=== PATIENT | male | born 1990 | race Caucasian/White ===

== ENCOUNTER → 2020-01-08 17:10 | Outpatient (CLI) | payer BC, SELFPAY ==
--- NOTE | ~2020-01-08 | XR_ITS ---
XR hip BI 2V w AP pelvis 01/08/2020 18:03 Indication: Bilateral hip pain Procedure: 3 views of each hip including AP pelvis Comparison: No prior studies for comparison. Findings: Pelvic rings are intact. No fracture or traumatic malalignment. No significant joint space narrowing. Sacral foramen are symmetric. No focal soft tissue abnormality. Impression: 1: No significant bone or joint abnormality. Reviewed, dictated and finalized at location A. MINER BLASTING Impression: 1: No significant bone or joint abnormality.
--- NOTE | ~2020-01-08 | MR_ITS ---
EXAMINATION: MR lumbar spine wo [facility] EXAM DATE: 01/08/2020 17:54 INDICATION: Low back pain for 6 years. TECHNIQUE: Multi-sequential, multiplanar MR images of the lumbar spine were obtained without contrast . Sagittal T1, T2, T2 fat saturation images. Axial T2 weighted images. There is no prior study for comparison. FINDINGS: The vertebral bodies are aligned in the AP dimension. There is mild disc disease L5-S1. The vertebral body and disc heights are otherwise well maintained. The conus medullaris terminates at th e L1/2 level and has normal signal intensity and morphology. There are no suspicious marrow signal a bnormalities. Paraspinal soft tissue is unremarkable. Level by level evaluation: T12-L1: Disc does not extend beyond the endplate margin. Facet arthropathy: Mild. Neural foraminal stenosis: No stenosis. Central canal stenosis: No stenosis. L1-L2: Disc does not extend beyond the endplate margin. Facet arthropathy: Mild. Neural foraminal stenosis: No stenosis. Central canal stenosis: No stenosis. L2-L3: Disc does not extend beyond the endplate margin. Facet arthropathy: Mild to moderate. Neural foraminal stenosis: No stenosis. Central canal stenosis: No stenosis. L3-L4: There is a mild diffuse disc bulge. Facet arthropathy: Mild to moderate. Neural foraminal stenosis: No stenosis. Central canal stenosis: No stenosis. L4-L5: There is a mild to moderate diffuse disc bulge. Facet arthropathy: Mild to moderate. Neural foraminal stenosis: Mild bilateral. Central canal stenosis: Mild. L5-S1: There is a mild to moderate diffuse disc bulge. Superimposed broad left central protrusion. Facet arthropathy: Mild to moderate. Neural foraminal stenosis: Mild to moderate bilateral. Central canal stenosis: Mild, mild narrowing of left lateral recess. IMPRESSION: 1. Mild lumbar spondylosis. Reviewed, dictated and finalized at location A. /CVN CV TSC SYSTEM OPERATOR IMPRESSION: 1. Mild lumbar spondylosis.
--- NOTE | ~2020-01-08 | XR_ITS ---
XR knee RT 3V 01/08/2020 18:03 INDICATION: Bilateral knee pain PROCEDURE: 3 views right knee COMPARISON: No prior studies for comparison. FINDINGS: Fracture, dislocation or subluxation is not identified. No significant joint effusion. The soft tissues appear within normal limits. No foreign bodies are identified. IMPRESSION: 1: NO ACUTE BONE OR JOINT ABNORMALITY IDENTIFIED. Reviewed, dictated and finalized at location A. LY CASEWORKER
--- NOTE | ~2020-01-08 | XR_ITS ---
XR knee LT 3V 01/08/2020 18:03 INDICATION: Left knee pain PROCEDURE: 3 views left knee COMPARISON: No prior studies for comparison. FINDINGS: Fracture, dislocation or subluxation is not identified. No significant joint effusion. The soft tissues appear within normal limits. No foreign bodies are identified. IMPRESSION: 1: NO ACUTE BONE OR JOINT ABNORMALITY IDENTIFIED. Reviewed, dictated and finalized at location A. L PRESSER
== END ==
PROVIDERS: Visit Provider Family Medicine
DX: M51.36 Other intervertebral disc degeneration, lumbar region (principal); M47.896 Other spondylosis, lumbar region
CPT/HCPCS: 72148; 73521; 73562

== ENCOUNTER 2020-11-03 16:09 | Outpatient (CLI) | payer BC, SELFPAY ==
[2020-11-03 16:43] LABS: Alanine Aminotransferase 27 U/L (4-50); Albumin Level 4.4 g/dL (3.5-5.1); Alkaline Phosphatase 44 U/L (38-126); Aspartate Amino Transferase 28 U/L (17-59); Bilirubin,Total 0.4 mg/dL (0.2-1.3)
== END 2020-11-03 16:10 | disposition home or self-care (01) ==
PROVIDERS: PCP Family Medicine; Visit Provider Internal Medicine Gastroenterology
DX: R10.11 Right upper quadrant pain (principal)
CPT/HCPCS: 36415; 80076

== ENCOUNTER → 2023-04-07 08:08 | Outpatient (CLI) | payer BC, SELFPAY ==
--- NOTE | ~2023-04-07 | US_ITS ---
US abdomen complete EXAMINATION: US Abdomen Complete INDICATION: Abdomen pain PROCEDURE: Realtime High Resolution abdomen ultrasound. COMPARISON: No prior studies for comparison FINDINGS: Gallbladder within normal limits. No gallstones, pericholecystic fluid, gallbladder wall t hickening or biliary dilatation. Common bile duct measures 4 mm. Liver echotexture is increased, consistent with fatty infiltration.. Pancreas within normal limits. Pancreatic tail is obscured by bowel gas. Spleen is unremarkeable. Renal echotexture is within norm al limits bilaterally without hydronephrosis, contour deforming mass or renal stone. Right kidney lul sures 11.5 cm. Left kidney measures cm. 11.2 Visualized aspects of the aorta and IVC are within normal limits. Portal vein is patent. No sonograph ic Armenta's sign indicated by the technologist. IMPRESSION: 1: Fatty infiltration of the liver. Reviewed, dictated and finalized at location D.
== END ==
PROVIDERS: PCP Nurse Practitioner Family; Visit Provider Nurse Practitioner Family
DX: K76.0 Fatty (change of) liver, not elsewhere classified (principal)
CPT/HCPCS: 76700

== ENCOUNTER 2023-10-27 17:24 | Emergency (ER) | payer BC, SELFPAY ==
--- NOTE | ~2023-10-27 | XR_ITS ---
EXAMINATION: XR chest 2V DATE: 10/27/2023 17:51 INDICATION: Chest pain. TECHNIQUE: Frontal and lateral views of the chest were obtained. COMPARISON: None. FINDINGS: There is no pneumonia, pleural effusion, or pneumothorax. The heart size is normal. IMPRESSION: 1. No acute cardiopulmonary disease. Reviewed, dictated and finalized at location E. RMATION ASSURANCE SPECIALIST
--- NOTE | 2023-10-27 17:34 | ECG_ITS ---
Measurements Intervals [place] Rate: 148 P: 63 MS: 128 QRS: 66 QRSD: 79 T: 53 QT: 269 QTc: 423 Interpretive Statements SINUS TACHYCARDIA ABNORMAL RHYTHM ECG NO PREVIOUS ECG AVAILABLE FOR COMPARISON Electronically Signed On 10-27-2023 19:20:58 HYDROGRAPHIC SURVEYOR by Candida Stevenson M.D.
[2023-10-27 17:45] VITALS: BP 155/86; PULSE 140; RESP 20; TEMP 39.4; O2SAT 99
[2023-10-27 17:51] LABS: Basophils Absolute Auto 0.1 K/mm3 (0.0-0.1); Basophils Percent Auto 0.3 % (0.2-1.2); Eosinophils Percent Auto 0.2 % (0-4.4); Hematocrit 43.6 % (42.0-52.0); Hemoglobin 14.8 g/dL (14.0-18.0); Immature Granulocyte Absolute 0.05 K/mm3 (0.00-0.031); Immature Granulocyte Percent A 0.3 % (0-0.5); Lymphocytes Absolute Auto 1.74 K/mm3 (0.9-3.2); Lymphocytes Percent Auto 9.8 % (18.3-44.2); Mean Corpuscular HGB Conc 33.9 g/dl (32-36); Mean Corpuscular Volume 85.3 fl (80-100); Mean Platelet Volume 9.1 fl (7.4-10.4); Monocytes Absolute Auto 1.2 K/mm3 (0.1-0.6); Monocytes Percent Auto 6.6 % (2.6-8.5); Neutrophils Absolute Auto 14.8 K/mm3 (1.3-6.7); Neutrophils Percent Auto 82.8 % (45.5-73.1); Platelet Count Result 299 k/mm3 (150-375); Red Blood Count 5.11 M/mm3 (4.6-6.20); White Blood Count 17.8 K/mm3 (4.5-10.0)
[2023-10-27 18:14] LABS: Prothrombin Time 13.6 Seconds (11.1-14.7)
[2023-10-27 18:15] LABS: Partial Thromboplastin Time 31.1 SECONDS (22.3-36.8)
[2023-10-27 18:17] LABS: Strep Group A RT-PCR DETECTED (Negative)
--- NOTE | 2023-10-27 18:19 | ED.CHESTPAIN ---
HPI - Chest Pain General Chief Complaint: Chest Pain Stated Complaint: chest pain-htn Time Seen by Provider: 10/27/23 18:19 Source: patient Mode of arrival: ambulatory Limitations: no limitations History of Present Illness HPI narrative: 33 years old white male came to the emergency room by private car complaining of sore throat, headache, fever, chills, body aches started yesterday. possible COVID exposure 2 days ago. Patient is healthy otherwise, does not take medicine at home. He denies any chest pain or shortness of breath. Related Data Allergies Allergy/AdvReac Type Severity Reaction Status Date / Time No Known Allergies Allergy Verified 10/27/23 17:25 Review of Systems Review of Systems: All systems reviewed & are unremarkable except as noted in HPI and below Exam Narrative: General appearance: Well-developed, well-nourished Skin: Normal color Head: Normocephalic, nontraumatic Eyes: Clear conjunctiva ENT: Bekah pharyngeal erythema Neck: Supple, nontender Chest and respiratory: Airway patent, no respiratory distress, no accessory muscle use Heart: Regular rate/rhythm Abdomen: Soft, nontender, no organomegaly, quiet bowel sounds Vascular: Normal peripheral pulses, normal capillary refill. Musculoskeletal: Normal range of motion, nontender back Neurologic: Alert and oriented ?3, TOE LASTER is normal as tested, no gross motor deficit Course Vital Signs Vital signs: Vital Signs Temperature 39.4 C H 10/27/23 17:45 Pulse Rate 140 H 10/27/23 17:45 Respiratory Rate 20 10/27/23 17:45 Blood Pressure 155/86 H 10/27/23 17:45 Pulse Oximetry 99 10/27/23 17:45 Oxygen Delivery Room Air 10/27/23 17:45 Temperature 39.4 C H 10/27/23 17:45 Pulse Rate 140 H 10/27/23 17:45 Respiratory Rate 20 10/27/23 17:45 Blood Pressure 155/86 H 10/27/23 17:45 Pulse Oximetry 99 10/27/23 17:45 Oxygen Delivery Room Air 10/27/23 17:45 MDM - Chest Pain MDM Narrative Medical decision making narrative: patient presents with sore throat Tested positive for strep throat, chest x-ray showed no acute abnormality, oxygen saturation on room air 99%. Patient does not look in pain or distress. patient received Toradol 30 mg IV prior to discharge, declined to take Tylenol, Patient will be discharged on Z-Brock. Patient declined to have penicillin IM and preferred oral antibiotics 2 days excuse of work Differential Diagnosis Differential diagnosis: Likely other ( viral infection) Lab Data 10/27/23 17:38 10/27/23 17:38 Labs: Lab Results 10/27/23 10/27/23 Range/Units 17:38 17:44 WBC 17.8 H (4.5-10.0) K/mm3 RBC 5.11 (4.6-6.20) M/mm3 Hgb 14.8 (14.0-18.0) g/dL Hct 43.6 (42.0-52.0) % MCV 85.3 (80-100) fl MCH 29.0 (26-34) pg MCHC 33.9 (32-36) g/dl RDW 12.0 (11.5-14.5) % Plt Count 299 (150-375) k/mm3 MPV 9.1 (7.4-10.4) fl Immature Gran % (Auto) 0.3 (0-0.5) % Neut % (Auto) 82.8 H (45.5-73.1) % Lymph % (Auto) 9.8 L (18.3-44.2) % Loving % (Auto) 6.6 (2.6-8.5) % Eos % (Auto) 0.2 (0-4.4) % Baso % (Auto) 0.3 (0.2-1.2) % Lymph # (Auto) 1.74 (0.9-3.2) K/mm3 Loving # (Auto) 1.2 H (0.1-0.6) K/mm3 Eos # (Auto) 0.0 (0-0.3) K/mm3 Baso # (Auto) 0.1 (0.0-0.1) K/mm3 Abs Immat Gran (auto) 0.05 H (0.00-0.031) K/mm3 Absolute Neuts (auto) 14.8 H (1.3-6.7) K/mm3 Absolute Nucleated RBC 0.0 (0.0-0.012) K/mm3 Nucleated RBC % 0.0 (0.0-0.2) % PT 13.6 (11.1-14.7) Seconds INR 1.0 APTT 31.1 (22.3-36.8) SECONDS Sodium 139 (137-145) mmol/L Potassium 3.9 (3.4-5.0) mmol/L Chloride 102 (98-107) mmol/L Carbon
[2023-10-27 18:29] LABS: Influenza A QL RT-PCR Negative (Negative); Influenza B QL RT-PCR Negative (Negative); SARS-CoV-2 RNA PCR Negative (Negative)
[2023-10-27 19:05] LABS: Alanine Aminotransferase 25 U/L (6-50); Albumin Level 4.8 g/dL (3.5-5.1); Alkaline Phosphatase 68 U/L (38-126); Anion Gap 9 mmol/L (8-16); Aspartate Amino Transferase 28 U/L (17-59); Bilirubin,Total 0.5 mg/dL (0.2-1.3); Blood Urea Nitrogen 13 mg/dL (9-20); Calcium 9.7 mg/dL (8.4-10.2); Carbon Dioxide 27 mmol/L (22-30); Chloride 103 mmol/L (98-107); Estimated CRCL calculation 93 ml/min; Estimated Glomerular Filt Rate > 60; Glucose 127 mg/dL (65-110); Lipase 91 U/L (23-300); Potassium 3.9 mmol/L (3.4-5.0); Sodium 139 mmol/L (137-145); Troponin I < 0.012 ng/mL (0.000-0.034)
[2023-10-27] MEDS: KETOROLAC 30 MG/ML VIAL (*BKC) IV PUSH (19:45)
== END 2023-10-27 19:49 | disposition home or self-care (01) ==
PROVIDERS: Emergency Medicine; Emergency Provider Emergency Medicine; PCP Family Medicine
DX: J02.0 Streptococcal pharyngitis (principal); Z20.822 Contact with and (suspected) exposure to COVID-19; R00.0 Tachycardia, unspecified
CPT/HCPCS: 36415; 71046; 80053; 83690; 84484; 85025; 85610; 85730; 87636; 87651; 93005; 96374; 99284; J1885

== ENCOUNTER 2023-11-25 18:46 | Emergency (ER) | payer BC, SELFPAY ==
--- NOTE | ~2023-11-25 | CT_ITS ---
CT ANGIOGRAM NECK AND HEAD History: Headache, dizziness. Technique: Axial noncontrast imaging of the brain was performed. Serial spiral axial images through t he head and neck were then obtained during arterial phase IV injection of 100 cc of Omnipaque 350. 3- D postprocessing and MIP images were then reconstructed on the remote workstation. Dose reduction gardenia hnique was used on this scan by utilizing automated exposure control and iterative reconstruction gardenia hnique. The dose-length product (DLP) was 1826.64 mGy-cm. CTA neck findings: Bilateral vertebral arteries are patent. Right vertebral artery terminates as rig ht PICA, normal variant. Bilateral common carotid, internal carotid, and external carotid arteries ar e patent. No large vessel occlusion. No stenosis or aneurysm. The proximal right internal carotid art erum demonstrates 0% stenosis relative to the normal distal artery lumen diameter. The proximal left i nternal carotid artery demonstrates 0% stenosis relative to the normal distal artery lumen diameter. CTA head findings: Basilar artery and posterior cerebral arteries are patent. Distal internal carotid arteries, middle cerebral arteries, and anterior cerebral arteries are patent. No large vessel occlu soren. No stenosis or aneurysm. Axial noncontrast imaging of the brain is essentially unremarkable. No acute infarct, internal hemorr soo, or mass lesion identified. Karimi-white differential preserved. Ventricles and subarachnoid space s are unremarkable. No mass effect or midline shift. There is retention cyst or polyp in the right ma xillary sinus. Remaining paranasal sinuses and mastoid air cells are clear. Impression: No significant abnormality seen. Reviewed, dictated and finalized at location . LANE PATROL PILOT Impression: No significant abnormality seen.
--- NOTE | ~2023-11-25 | XR_ITS ---
XR chest 1V portable DATE: 11/26/2023 01:46 INDICATION: Mid chest pain TECHNIQUE: Portable upright AP chest on 11/26/2023 at 0141 hours COMPARISON: 10/27/2023 PA and lateral chest FINDINGS: Normal heart size. No hilar or mediastinal enlargement. No pulmonary infiltrate or consolid ation, pleural effusion or pulmonary vascular congestion or pneumothorax is detected. IMPRESSION: No active cardiopulmonary disease Reviewed, dictated and finalized at location A. T AND OATS FLAKE MILLER
[2023-11-25 19:04] VITALS: BP 151/94; PULSE 93; RESP 16; TEMP 36.2; O2SAT 99
[2023-11-25 19:23] VITALS: BP 157/93; PULSE 96; RESP 18; TEMP 36.4; O2SAT 100
[2023-11-26] VITALS (24 sets, daily range): BP systolic 114–147; BP diastolic 70–96; PULSE 67–83; RESP 11–19; O2SAT 97–100
--- NOTE | 2023-11-26 00:13 | ECG_ITS ---
Measurements Intervals [place] Rate: 71 P: 45 AL: 145 QRS: 24 QRSD: 89 T: 30 QT: 349 QTc: 379 Interpretive Statements SINUS RHYTHM NORMAL ECG COMPARED TO ECG 10/27/2023 17:37:24 SINUS RHYTHM NOW PRESENT Electronically Signed On 11-26-2023 8:43:55 PRESALES SENIOR SPECIALIST by Robert Rodriguez D.O.
[2023-11-26 01:01] LABS: Basophils Percent Auto 0.5 % (0.2-1.2); Eosinophils Absolute Auto 0.3 K/mm3 (0-0.3); Eosinophils Percent Auto 3.2 % (0-4.4); Hematocrit 42.8 % (42.0-52.0); Hemoglobin 14.1 g/dL (14.0-18.0); Immature Granulocyte Absolute 0.02 K/mm3 (0.00-0.031); Immature Granulocyte Percent A 0.2 % (0-0.5); Lymphocytes Absolute Auto 3.75 K/mm3 (0.9-3.2); Mean Corpuscular HGB Conc 32.9 g/dl (32-36); Mean Corpuscular Hemoglobin 28.8 pg (26-34); Mean Corpuscular Volume 87.3 fl (80-100); Mean Platelet Volume 9.4 fl (7.4-10.4); Monocytes Absolute Auto 0.7 K/mm3 (0.1-0.6); Monocytes Percent Auto 8.4 % (2.6-8.5); Neutrophils Absolute Auto 3.7 K/mm3 (1.3-6.7); Neutrophils Percent Auto 43.7 % (45.5-73.1); Platelet Count Result 296 k/mm3 (150-375); Red Cell Distribution Width 12.3 % (11.5-14.5); White Blood Count 8.5 K/mm3 (4.5-10.0)
[2023-11-26 01:12] LABS: Alanine Aminotransferase 33 U/L (6-50); Albumin Level 4.7 g/dL (3.5-5.1); Alkaline Phosphatase 50 U/L (38-126); Anion Gap 10 mmol/L (8-16); Aspartate Amino Transferase 25 U/L (17-59); Bilirubin,Total 0.4 mg/dL (0.2-1.3); Blood Urea Nitrogen 14 mg/dL (9-20); Calcium 9.3 mg/dL (8.4-10.2); Carbon Dioxide 28 mmol/L (22-30); Chloride 101 mmol/L (98-107); Estimated CRCL calculation 128 ml/min; Estimated Glomerular Filt Rate > 60; Glucose 94 mg/dL (65-110); Potassium 3.8 mmol/L (3.4-5.0); Sodium 139 mmol/L (137-145)
[2023-11-26 02:12] LABS: Troponin I < 0.012 ng/mL (0.000-0.034)
--- NOTE | 2023-11-26 03:06 | PC.NURSE ---
THIS RN ASSUMED CARE OF PATIENT. PT REPORT WAS TAKEN FROM JEANINE MADERA.
--- NOTE | 2023-11-26 03:41 | ED.GENADULT ---
HPI - General Adult General Chief complaint: Syncope Stated complaint: tingling in hands/shoulder pain Time Seen by Provider: 11/25/23 19:09 History of Present Illness HPI narrative: patient is a 3-year-old gentleman presents emergency department with chief complaint of dizziness. Patient reports that about 2 weeks ago he had an episode where he felt a strange sensation in his neck and then had a lightheaded sensation on the right side of his head. The patient states that he had no evidence of syncope denies chest pain at that time but does report that he has had some sharp discomfort in the right sternal border of his chest. Related Data Allergies Allergy/AdvReac Type Severity Reaction Status Date / Time No Known Allergies Allergy Verified 11/26/23 00:37 Review of Systems Review of Systems: A 10 system review of systems was completed on the patient and is negative except for what is stated in the HPI. Nursing and ancillary documentation was reviewed. Exam Narrative: GENERAL: Well-appearing, well-nourished, and in no acute distress. HEAD: Normocephalic, atraumatic. EYES: PERRLA and EOMI. ENT: Nares clear, no rhinorrhea or epistaxis. Mucous membranes moist. NECK: Supple. CHEST: Clear to auscultation. No respiratory distress. HEART: Regular rate and rhythm. No murmur heard. Normal peripheral pulses. ABDOMEN: Soft, nontender, nondistended, normal active bowel sounds. EXTREMITIES: Normal range of motion. No edema. SKIN: Warm, dry, no rash. NEURO: No focal deficits. Alert and oriented x3. 5/5 strength, NIH 0 PSYCH: Normal mood and affect. Course Vital Signs Vital signs: Vital Signs Temperature 36.2 C L 11/25/23 19:04 Pulse Rate 93 11/25/23 19:04 Respiratory Rate 16 11/25/23 19:04 Blood Pressure 151/94 H 11/25/23 19:04 Pulse Oximetry 99 11/25/23 19:04 Temperature 36.4 C 11/25/23 19:23 Pulse Rate 74 11/26/23 00:32 Respiratory Rate 11 L 11/26/23 00:32 Blood Pressure 147/96 H 11/26/23 00:32 Pulse Oximetry 98 11/26/23 00:32 Oxygen Delivery Room Air 11/25/23 19:23 Medical Decision Making MDM Narrative Medical decision making narrative: differential diagnosis includes vertigo, atypical chest pain, chest wall pain, cerebral aneurysm . CTA head and neck showed no evidence of home aneurysm chest x-ray showed no focal findings EKG showed no acute ischemic changes troponin was negative Vital Signs Vital Signs: Vital Signs Temperature 36.2 C L 11/25/23 19:04 Pulse Rate 93 11/25/23 19:04 Respiratory Rate 16 11/25/23 19:04 Blood Pressure 151/94 H 11/25/23 19:04 Pulse Oximetry 99 11/25/23 19:04 Temperature 36.4 C 11/25/23 19:23 Pulse Rate 74 11/26/23 00:32 Respiratory Rate 11 L 11/26/23 00:32 Blood Pressure 147/96 H 11/26/23 00:32 Pulse Oximetry 98 11/26/23 00:32 Oxygen Delivery Room Air 11/25/23 19:23 Lab Data 11/26/23 00:39 11/26/23 00:39 Labs: Lab Results 11/26/23 11/26/23 Range/Units 00:38 00:39 WBC 8.5 (4.5-10.0) K/mm3 RBC 4.90 (4.6-6.20) M/mm3 Hgb 14.1 (14.0-18.0) g/dL Hct 42.8 (42.0-52.0) % MCV 87.3 (80-100) fl MCH 28.8 (26-34) pg MCHC 32.9 (32-36) g/dl RDW 12.3 (11.5-14.5) % Plt Count 296 (150-375) k/mm3 MPV 9.4 (7.4-10.4) fl Immature Gran % (Auto) 0.2 (0-0.5) % Neut % (Auto) 43.7 L (45.5-73.1) % Lymph % (Auto) 44.0 (18.3-44.2) % Gaines % (Auto) 8.4 (2.6-8.5) % Eos % (Auto) 3.2 (0-4.4) % Baso % (Auto) 0.5 (0.2-1.2) % Lymph # (Auto) 3.75 H (0.9-3.2) K/mm3 Gaines # (Auto) 0.7 H (0.1-0.6) K/mm3 Eos # (Auto) 0.3 (0-0.3) K/mm3 Baso # (Auto) 0.0 (0.0-0.1) K/mm3 Abs Immat Gran (auto) 0.02 (0.00-0.031) K/mm3 Absolute Neuts (auto) 3.7 (1.3-6.7) K/mm3 Absolute Nucleated RBC 0.0 (0.0-0.012) K/mm3 Nucleated RBC % 0.0 (0.0-0.2) % Sodium 139 (137-145) mmol/L Potassium 3.8 (
== END 2023-11-26 03:55 | disposition home or self-care (01) ==
PROVIDERS: Emergency Provider Emergency Medicine
DX: R42 Dizziness and giddiness (principal); R07.89 Other chest pain
CPT/HCPCS: 36415; 70496; 70498; 71045; 80053; 84484; 85025; 93005; 99284; Q9967

== ENCOUNTER 2023-12-21 11:24 | Outpatient (CLI) | payer BC, SELFPAY ==
[2023-12-21 18:45] LABS: Hematocrit 45.3 % (42.0-52.0); Hemoglobin 14.9 g/dL (14.0-18.0); Mean Corpuscular HGB Conc 32.9 g/dl (32-36); Mean Corpuscular Hemoglobin 28.7 pg (26-34); Mean Corpuscular Volume 87.1 fl (80-100); Mean Platelet Volume 9.3 fl (7.4-10.4); Platelet Count Result 301 k/mm3 (150-375); Red Cell Distribution Width 12.1 % (11.5-14.5); White Blood Count 9.2 K/mm3 (4.5-10.0)
[2023-12-21 19:44] LABS: LDL Cholesterol Direct 113 mg/dL
[2023-12-21 20:03] LABS: Thyroid Stimulating Hormone 0.691 uIU/mL (0.465-4.680)
[2023-12-21 20:42] LABS: Alanine Aminotransferase 28 U/L (6-50); Albumin Level 4.5 g/dL (3.5-5.1); Alkaline Phosphatase 56 U/L (38-126); Anion Gap 6 mmol/L (8-16); Aspartate Amino Transferase 53 U/L (17-59); Bilirubin,Total 0.7 mg/dL (0.2-1.3); Blood Urea Nitrogen 13 mg/dL (9-20); Calcium 9.6 mg/dL (8.4-10.2); Carbon Dioxide 33 mmol/L (22-30); Chloride 101 mmol/L (98-107); Cholesterol 166 mg/dL (0-200); Estimated Glomerular Filt Rate > 60; Glucose 93 mg/dL (65-110); HDL Direct 29 mg/dL; Potassium 4.4 mmol/L (3.4-5.0); Sodium 140 mmol/L (137-145); Triglycerides 104 mg/dL (<150)
== END 2023-12-21 11:25 | disposition home or self-care (01) ==
LOC: ANHBWCLAB 11:26
PROVIDERS: PCP Nurse Practitioner Adult Health; Visit Provider Nurse Practitioner Adult Health
DX: Z13.9 Encounter for screening, unspecified (principal)
CPT/HCPCS: 36415; 80053; 80061; 84443; 85027

== ENCOUNTER 2024-05-29 15:57 | Outpatient (CLI) | payer BC, SELFPAY ==
--- NOTE | ~2024-05-29 | XR_ITS ---
XR abdomen/kub 1V Ordering provider: Chantal Pressley APRN History: . Right side abd pain . Comparison: None. FINDINGS: BOWEL: Nonobstructive bowel gas pattern. ORGANOMEGALY: None. SIGNIFICANT PATHOLOGIC CALCIFICATIONS: None. OTHER: No free air is seen under the diaphragm. IMPRESSION: NO ACUTE ABDOMINAL FINDINGS. Reviewed, dictated and finalized at location A.
[2024-05-29 19:19] LABS: Basophils Absolute Auto 0.1 K/mm3 (0.0-0.1); Basophils Percent Auto 0.7 % (0.2-1.2); Eosinophils Absolute Auto 0.1 K/mm3 (0-0.3); Eosinophils Percent Auto 1.8 % (0-4.4); Hematocrit 42.7 % (42.0-52.0); Hemoglobin 14.4 g/dL (14.0-18.0); Immature Granulocyte Absolute 0.02 K/mm3 (0.00-0.031); Immature Granulocyte Percent A 0.3 % (0-0.5); Lymphocytes Absolute Auto 3.22 K/mm3 (0.9-3.2); Lymphocytes Percent Auto 42.3 % (18.3-44.2); Mean Corpuscular HGB Conc 33.7 g/dl (32-36); Mean Corpuscular Hemoglobin 29.4 pg (26-34); Mean Corpuscular Volume 87.1 fl (80-100); Mean Platelet Volume 9.6 fl (7.4-10.4); Monocytes Absolute Auto 0.7 K/mm3 (0.1-0.6); Monocytes Percent Auto 8.7 % (2.6-8.5); Neutrophils Absolute Auto 3.5 K/mm3 (1.3-6.7); Neutrophils Percent Auto 46.2 % (45.5-73.1); Platelet Count Result 266 k/mm3 (150-375); Red Cell Distribution Width 12.5 % (11.5-14.5); White Blood Count 7.6 K/mm3 (4.5-10.0)
[2024-05-29 19:29] LABS: Alanine Aminotransferase 25 U/L (6-50); Albumin Level 4.8 g/dL (3.5-5.1); Alkaline Phosphatase 59 U/L (38-126); Amylase 69 U/L (30-110); Anion Gap 10 mmol/L (4-12); Aspartate Amino Transferase 36 U/L (17-59); Bilirubin,Total 0.6 mg/dL (0.2-1.3); Blood Urea Nitrogen 12 mg/dL (9-20); Calcium 9.9 mg/dL (8.4-10.2); Carbon Dioxide 30 mmol/L (22-30); Chloride 101 mmol/L (98-107); Estimated Glomerular Filt Rate > 60; Glucose 92 mg/dL (65-110); Lipase 89 U/L (23-300); Potassium 4.1 mmol/L (3.4-5.0); Sodium 141 mmol/L (137-145)
== END 2024-05-29 15:58 | disposition home or self-care (01) ==
PROVIDERS: PCP Nurse Practitioner Adult Health; Visit Provider Nurse Practitioner Adult Health
DX: R10.31 Right lower quadrant pain (principal)
CPT/HCPCS: 36415; 74018; 80053; 82150; 83690; 85025

== ENCOUNTER 2024-06-18 12:53 | Emergency (ER) | payer BC, SELFPAY ==
[2024-06-18] VITALS (13 sets, daily range): BP systolic 123–143; BP diastolic 64–81; PULSE 75–87; RESP 7–22; TEMP 36.2; O2SAT 98–100
--- NOTE | ~2024-06-18 | XR_ITS ---
XR chest 2V Ordering provider: Sulaiman Mari MD History: 34 years Male with . cp . Comparison: November 26, 2023 FINDINGS: MEDIASTINUM: The cardiac silhouette is not enlarged. LUNGS: No infiltrates, effusions or pneumothorax. OTHER: No free air under the diaphragm. IMPRESSION: No acute cardiopulmonary pathology. Reviewed, dictated and finalized at location A.
--- NOTE | 2024-06-18 12:53 | ECG_ITS ---
Test Date: 2024-06-18 12:58:02 Measurements Intervals [place] Rate: 79 P: 59 LA: 141 QRS: 30 QRSD: 89 T: 30 QT: 341 QTc: 391 Interpretive Statements SINUS RHYTHM NORMAL ECG No previous ECG available for comparison Electronically Signed On 06-18-2024 13:45:20 CDT by Robert Rodriguez D.O.
--- NOTE | 2024-06-18 13:07 | ED.CHESTPAIN ---
HPI - Chest Pain General Chief Complaint: Chest Pain Stated Complaint: cp Time Seen by Provider: 06/18/24 12:54 History of Present Illness HPI narrative: 34-year-old male presenting to the emergency department for evaluation for intermittent chest pain. Patient states he has had intermittent chest pain and abdominal pain over the course of the last few months and has had follow-up with primary care physician for this. Patient states today he had onset of left-sided chest pain that lasted approximately 5 minutes. Patient reports he does have outpatient ultrasound ordered of his gallbladder. Patient did admit to having some heavy drinking at a [employer] recently. Related Data Home Medications Medication Instructions Recorded Confirmed Multi Vitamin BYMOUTH 12/08/23 05/29/24 Pro Biotic BYMOUTH 12/08/23 05/29/24 Zyrtec BYMOUTH 12/08/23 05/29/24 Allergies Allergy/AdvReac Type Severity Reaction Status Date / Time No Known Allergies Allergy Verified 05/29/24 15:44 Review of Systems Review of Systems: All systems reviewed & are unremarkable except as noted in HPI and below PMFSH Past Medical History Medical History IBS (irritable bowel syndrome) Family History Family History Father History of ETOH abuse Mother Hypertension Cerebrovascular accident Grandparent Carcinoma of colon Grandparent Carcinoma of colon Social History Social History Smoking status: Never smoker Alcohol intake: current Alcohol use details: Beer Weekends Substance use: never Lack of Transportation: No Lack of Food: Never True Current Housing: I Have Housing Concerned About Future Housing: No Difficulty Paying Gas/Electric Bills: No Difficulty Paying for Meds: No Currently Unemployed: No Education: Associate Degree Difficulty w/ Childcare or Family Care: No Living arrangements: with family Occupation/Education: occupation Additional occupation/education comments: [employer] Gender identity (if verbalized by the patient): Male Agree to blood products: Yes Exam Narrative: APPEARANCE: Well appearing, no pain, no distress, well-nourished. HEAD: normocephalic, atraumatic. EYES: PERRLA/EOMI, conjunctivae clear. NOSE: Normal no drainage EARS:TMS clear with good light reflex. THROAT: Pharynx clear, no exudate. NECK: Supple. No adenopathy, no masses. RESPIRATORY: Airway patent, respirations nonlabored. Clear to auscultation bilaterally, no rales, rhonchi, wheezing. CARDIOVASCULAR: Regular rate and rhythm without murmurs rubs or gallops. ABDOMINAL: Soft, nontender, nondistended, normal bowel sounds MUSCULOSKELETAL: Moves all extremities. Strength/ROM intact, No edema, No calf tenderness. NEURO: Alert. Cranial nerves II through XII intact. Grossly intact SKIN: Warm, dry. Normal Color Course Vital Signs Vital signs: Vital Signs Pulse Rate 78 06/18/24 13:00 Respiratory Rate 7 L 06/18/24 13:00 Blood Pressure 143/81 H 06/18/24 13:00 Pulse Oximetry 99 06/18/24 13:00 Temperature 97.1 F L 06/18/24 13:04 Pulse Rate 75 06/18/24 16:16 Respiratory Rate 13 06/18/24 16:16 Blood Pressure 137/72 06/18/24 16:16 Pulse Oximetry 100 06/18/24 16:16 Oxygen Delivery Room Air 06/18/24 14:01 MDM - Chest Pain MDM Narrative Medical decision making narrative: [age] old male presenting to the emergency department for evaluation of intermittent chest pressure. Patient is afebrile with no leukocytosis and a stable hemoglobin of 15.4. Patient's INR is 1.0, D-dimer was not elevated. CTA was not done. No acute abnormalities on the patient's CMP and patient had negative serial troponins and normal serial EKGs. Patient was negative for influenza RSV and for COVID. Chest x-ray shows no acute cardiop
[2024-06-18 13:11] LABS: Basophils Percent Auto 0.4 % (0.2-1.2); Eosinophils Absolute Auto 0.1 K/mm3 (0-0.3); Eosinophils Percent Auto 1.1 % (0-4.4); Hematocrit 44.8 % (42.0-52.0); Hemoglobin 15.4 g/dL (14.0-18.0); Immature Granulocyte Absolute 0.01 K/mm3 (0.00-0.031); Immature Granulocyte Percent A 0.1 % (0-0.5); Lymphocytes Absolute Auto 2.94 K/mm3 (0.9-3.2); Lymphocytes Percent Auto 41.3 % (18.3-44.2); Mean Corpuscular HGB Conc 34.4 g/dl (32-36); Mean Corpuscular Hemoglobin 29.6 pg (26-34); Mean Corpuscular Volume 86.2 fl (80-100); Mean Platelet Volume 9.2 fl (7.4-10.4); Monocytes Absolute Auto 0.5 K/mm3 (0.1-0.6); Monocytes Percent Auto 7.6 % (2.6-8.5); Neutrophils Absolute Auto 3.5 K/mm3 (1.3-6.7); Neutrophils Percent Auto 49.5 % (45.5-73.1); Platelet Count Result 276 k/mm3 (150-375); Red Cell Distribution Width 12.3 % (11.5-14.5); White Blood Count 7.1 K/mm3 (4.5-10.0)
[2024-06-18 13:21] LABS: Alanine Aminotransferase 24 U/L (6-50); Albumin Level 5.1 g/dL (3.5-5.1); Alkaline Phosphatase 56 U/L (38-126); Anion Gap 12 mmol/L (4-12); Aspartate Amino Transferase 28 U/L (17-59); Bilirubin,Total 0.4 mg/dL (0.2-1.3); Blood Urea Nitrogen 13 mg/dL (9-20); Calcium 9.5 mg/dL (8.4-10.2); Carbon Dioxide 28 mmol/L (22-30); Chloride 101 mmol/L (98-107); Estimated Glomerular Filt Rate > 60; Glucose 98 mg/dL (65-110); Lipase 109 U/L (23-300); Sodium 141 mmol/L (137-145)
[2024-06-18 13:22] LABS: Partial Thromboplastin Time 26.2 Seconds (22.3-36.8); Prothrombin Time 13.6 Seconds (11.1-14.7)
[2024-06-18 13:39] LABS: Troponin I < 0.012 ng/mL (0.000-0.034)
[2024-06-18 14:18] LABS: Influenza A QL RT-PCR Negative (Negative); Influenza B QL RT-PCR Negative (Negative); RSV RNA, RT-PCR Negative (Negative); SARS-CoV-2 RNA PCR Negative (Negative)
[2024-06-18 14:31] LABS: D Dimer 0.28 ug/mL (<0.48)
--- NOTE | 2024-06-18 16:04 | ECG_ITS ---
Test Date: 2024-06-18 16:16:24 Measurements Intervals [place] Rate: 75 P: 55 NH: 138 QRS: 33 QRSD: 86 T: 35 QT: 340 QTc: 381 Interpretive Statements SINUS RHYTHM BASELINE ARTIFACT- I, II, AVR NORMAL ECG Compared to ECG 06/18/2024 12:58:02 No significant changes Electronically Signed On 06-18-2024 16:39:18 CDT by Robert Rodriguez D.O.
[2024-06-18 16:33] LABS: Troponin I < 0.012 ng/mL (0.000-0.034)
== END 2024-06-18 17:32 | disposition home or self-care (01) ==
PROVIDERS: Emergency Provider Emergency Medicine; PCP Nurse Practitioner Adult Health
DX: R07.89 Other chest pain (principal); Z20.822 Contact with and (suspected) exposure to COVID-19
CPT/HCPCS: 36415; 71046; 80053; 83690; 84484; 85025; 85380; 85610; 85730; 87637; 93005; 99284

== ENCOUNTER 2024-06-22 08:10 | Outpatient (CLI) | payer BC, SELFPAY ==
--- NOTE | ~2024-06-22 | US_ITS ---
Abdominal Sonogram: Real-time sonographic imaging of the abdomen was performed. Clinical History: Abdominal pain Findings: The liver appears mildly echogenic, with no evidence of mass lesion or bile duct dilatatio n. Main portal vein demonstrates normal direction of flow. The spleen is normal in size without evide nce of focal lesion. The gallbladder is well distended, and appears normal with no evidence of galls tone or wall thickening. The common bile duct measures 4 mm. The visualized pancreas, aorta, and IVC are unremarkable. The right kidney measures 10.8 cm in length and the left kidney measures 11.1 cm. There is no hydronephrosis or renal calculus. Impression: Probable fatty infiltration of liver. Reviewed, dictated and finalized at location M. Impression: Probable fatty infiltration of liver.
== END 2024-06-22 08:11 ==
LOC: MICIMG 08:11
PROVIDERS: PCP Nurse Practitioner Adult Health; Visit Provider Nurse Practitioner Adult Health
DX: R10.31 Right lower quadrant pain (principal)
CPT/HCPCS: 76700

== ENCOUNTER 2024-08-27 00:25 | Day surgery (SDC) | payer BC, SELFPAY ==
[2024-08-13 14:57] VITALS: BMI 29.2
[2024-08-27 12:42] VITALS: BP 126/84; PULSE 77; RESP 20; TEMP 35.9; O2SAT 100; BMI 27.1
--- NOTE | 2024-08-27 12:54 | WPDANESEPPF ---
Anes - Initial Pre Proc Eval Procedure: Operation Date: 08/27/24 14:00 Proposed Procedures p Esophagogastroduodenoscopy & Colonoscopy - Gerardo Schmitt MD Date/Time: 08/27/24 12:54 Surgeon: Gerardo Schmitt MD Pre Op Diagnosis: RLQ Pain, Diarrhea, IBS Patient Data Age: 34 Gender: M Height: 1.83 m Weight: 90.7 kg Last Vital Signs Temp 35.9 C L 08/27/24 12:42 Pulse 77 08/27/24 12:42 Resp 20 08/27/24 12:42 BP 126/84 08/27/24 12:42 Pulse Ox 100 08/27/24 12:42 O2 Del Method Room Air 08/27/24 12:42 Allergies Allergy/AdvReac Type Severity Reaction Status Date / Time No Known Allergies Allergy Verified 08/27/24 12:41 Home Medications Medication Instructions Recorded Confirmed Type Multi Vitamin 2 gummy BYMOUTH DAILY 12/08/23 08/27/24 History Zyrtec 1 tablet BYMOUTH DAILY 12/08/23 08/27/24 History meclizine 12.5 mg tablet 12.5 mg PO TID PRN dizziness #90 12/08/23 08/27/24 Rx tabs dicyclomine 20 mg tablet 20 mg PO TID PRN abdominal pain 07/26/24 08/27/24 Rx #90 tabs omeprazole 40 mg capsule,delayed 40 mg PO DAILY 1 month #30 caps 07/26/24 08/27/24 Rx release ibuprofen 200 mg tablet 600 mg PO Q6H PRN Pain 08/13/24 08/27/24 History Patient hx anesthesia problems: none Family hx anesthesia problems: none Results Review: All pre-operative results and documents have been reviewed as part of the pre-operative evaluation. [facility] Past Medical History Medical History Diarrhea Fatty liver IBS (irritable bowel syndrome) Family History Family History Father History of ETOH abuse Mother Hypertension Cerebrovascular accident Grandparent Carcinoma of colon Grandparent Carcinoma of colon Social History Social History Smoking packs per day: 0.5 Smoking cigarettes per day: 10.0 Smoking status: Current every day smoker Tobacco type: cigarettes Additional smoking assessment comments: cutting back to quit Alcohol intake: current Drinks per week: 7 Alcohol use details: Beer Weekends Substance use: never Lack of Transportation: No Lack of Food: Never True Current Housing: I Have Housing Concerned About Future Housing: No Difficulty Paying Gas/Electric Bills: No Difficulty Paying for Meds: No Currently Unemployed: No Education: Associate Degree Difficulty w/ Childcare or Family Care: No Living arrangements: with family Occupation/Education: occupation 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[employer] Gender identity (if verbalized by the patient): Male Spiritual care concerns: No Agree to blood products: Yes Anes - Eval Final PreProcedure Day of Procedure 08/27/24 12:54 Patient weight: overweight Heart: regular rate and rhythm Lungs: clear to auscultation Airway: Mallampati scale class II Neurological: alert and oriented Last oral intake: >/= 8 hours ASA classification: II Emergent: no Anesthetic plan: proceed Anesthesia type and monitoring: general GIVS and standard monitoring Results Review: All pre-operative results and documents have been reviewed as part of the pre-operative evaluation. Informed Consent: The patient's anesthetic plan and its attendant risks and benefits were discussed with the patient/family/POA. Questions were solicited and answers provided to the satisfaction of the patient/family/POA.
[2024-08-27] MEDS: LACTATED RINGERS 1,000 ML 150 ML IV CONT (12:55)
--- NOTE | 2024-08-27 13:26 | PM.HPGS ---
History of Present Illness History of Present Illness Consent: Risks, benefits, and alternatives have been discussed and questions answered. Patient agrees to proceed with procedure. Chief complaint: RLQ Pain, Diarrhea, IBS Narrative: Semaj Herrera is a 34 year old male here for first egd and colonoscopy, h/o ibs-d with loose stools and intermittent abdominal pain Review of Systems Review of Systems: All systems reviewed & are unremarkable except as noted in HPI and below PMFSH Past Medical History Medical History Diarrhea Fatty liver IBS (irritable bowel syndrome) Family History Family History Father History of ETOH abuse Mother Hypertension Cerebrovascular accident Grandparent Carcinoma of colon Grandparent Carcinoma of colon Social History Social History Smoking packs per day: 0.5 Smoking cigarettes per day: 10.0 Smoking status: Current every day smoker Tobacco type: cigarettes Additional smoking assessment comments: cutting back to quit Alcohol intake: current Drinks per week: 7 Alcohol use details: Beer Weekends Substance use: never Lack of Transportation: No Lack of Food: Never True Current Housing: I Have Housing Concerned About Future Housing: No Difficulty Paying Gas/Electric Bills: No Difficulty Paying for Meds: No Currently Unemployed: No Education: Associate Degree Difficulty w/ Childcare or Family Care: No Living arrangements: with family Occupation/Education: occupation 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[employer] Gender identity (if verbalized by the patient): Male Spiritual care concerns: No Agree to blood products: Yes Meds Home Medications and Allergies Home Medications Medication Instructions Recorded Confirmed Type Multi Vitamin 2 gummy BYMOUTH DAILY 12/08/23 08/27/24 History Zyrtec 1 tablet BYMOUTH DAILY 12/08/23 08/27/24 History meclizine 12.5 mg tablet 12.5 mg PO TID PRN dizziness #90 12/08/23 08/27/24 Rx tabs dicyclomine 20 mg tablet 20 mg PO TID PRN abdominal pain 07/26/24 08/27/24 Rx #90 tabs omeprazole 40 mg capsule,delayed 40 mg PO DAILY 1 month #30 caps 07/26/24 08/27/24 Rx release ibuprofen 200 mg tablet 600 mg PO Q6H PRN Pain 08/13/24 08/27/24 History Allergies Allergy/AdvReac Type Severity Reaction Status Date / Time No Known Allergies Allergy Verified 08/27/24 12:41 Vital Signs Vital Signs - 24 hr 08/27/24 12:42 Temperature 96.6 F L Pulse Rate 77 Respiratory Rate 20 Blood Pressure 126/84 Pulse Oximetry 100 Oxygen Delivery Room Air Exam Const: General: comfortable and no acute distress HENMT: Face/Nose/Sinus: Normal nares present Eyes: General: appearance normal, both eyes and all related structures Neck: Neck: no JVD Resp: Auscultation: clear to auscultation bilaterally Cardio: Rate: regular rate Rhythm: regular rhythm GI: Inspection: non-distended GI Palp: Yes Soft to palpation Skin: General skin exam: normal color Neuro: General: gait normal Speech: normal speech Extrem: General: normal to inspection Psych: Mental Status: mental status grossly normal Assessment and Plan Assessment and plan (1) IBS (irritable bowel syndrome): Code(s): K58.9 - Irritable bowel syndrome, unspecified Status: Acute Assessment and Plan: egd and colonoscopy (2) Abdominal pain: Code(s): R10.9 - Unspecified abdominal pain Status: Acute
[2024-08-27] MEDS: BENZOCAINE (*SP) 60 ML SPRAY CAN (HURRICAINE) 1 SPRAY MUCOUS MEM (13:34)
--- NOTE | 2024-08-27 13:44 | SUR.OPER ---
EGD end 1340 COLONOSCOPY START 1344
[2024-08-27 13:56] VITALS: BP 118/75; PULSE 79; RESP 21; O2SAT 99
[2024-08-27 14:06] VITALS: BP 111/77; PULSE 76; RESP 19; O2SAT 99
[2024-08-27 14:16] VITALS: BP 126/83; PULSE 76; RESP 16; O2SAT 100
== END 2024-08-27 14:24 | disposition home or self-care (01) ==
PROVIDERS: PCP Nurse Practitioner Adult Health; Referring Provider Nurse Practitioner Family; Visit Provider Internal Medicine Gastroenterology
PROC: 0DJ08ZZ Inspection of Upper Intestinal Tract, Via Natural or Artificial Opening Endoscopic (ICD-10-PCS; CPT 43235; principal; 2024-08-27 14:00)
DX: K29.80 Duodenitis without bleeding (principal); K58.9 Irritable bowel syndrome, unspecified; F17.210 Nicotine dependence, cigarettes, uncomplicated; Z79.1 Long term (current) use of non-steroidal anti-inflammatories (NSAID); Z80.0 Family history of malignant neoplasm of digestive organs; Z82.49 Family history of ischemic heart disease and other diseases of the circulatory system
CPT/HCPCS: 43239; 45380; 88305; J2003; J2704; J7120

== ENCOUNTER 2024-11-06 09:39 | Outpatient (CLI) | payer BC, SELFPAY ==
--- NOTE | ~2024-11-06 | CT_ITS ---
Non-contrast CT scan of the Abdomen Clinical indication: Abdominal pain Technique: 2.5 mm axial scans were obtained through the abdomen without intravenous or oral contrast . Dose reduction technique was used on this scan by utilizing automated exposure control and iterativ e reconstruction technique. The dose-length product (DLP) was 408.10 mGy-cm. Findings: Images through the lung bases reveal no abnormalities. There is no evidence of renal or ureteral calculi. The kidneys and the ureters are nondilated. The liver, spleen, pancreas, gallbladder, and adrenals appear normal. There is no aortic aneurysm. Visualized bowel loops are unremarkable. No ascites. Impression: No significant abnormality seen. Reviewed, dictated and finalized at location . [employer] CLAIMS MANAGER Impression: No significant abnormality seen.
== END 2024-11-06 09:40 | disposition home or self-care (01) ==
PROVIDERS: PCP Nurse Practitioner Adult Health; Visit Provider Nurse Practitioner Adult Health
DX: R10.9 Unspecified abdominal pain (principal)
CPT/HCPCS: 74150

== ENCOUNTER 2025-07-31 11:12 | Outpatient (CLI) | payer BC, SELFPAY ==
--- OUTSIDE RECORDS SUMMARY | 2025-07-31 12:09 | XMS_ITS | Encounter Summary ---
Author Organization [facility] Address [address] [place] [address] Care Team Providers Care Loans Consultant Name Role Phone Unavailable Primary Care Provider Unavailabl e Encounter Details Date Type Department Care Team (Late st Contact Info) Description 02/04/2020 Lab Requisition [facility] DermPath Lab [address] [facility] [place] [address] Ed Kaplan MD [address] [address] Social History Tobacco Use Types Packs/Day Years Used Date Smoking Tobacco: Some Days Smokeless Tobacco: Never Sex and Gender Information Value Date Recorded Sex Assigned at Not on file Legal Sex Male 7:31 AM CDT Gender Identity Not on file Sexual Orientation Not on file documented as of this encounter Plan of Treatment Not on file documented as of this encounter Procedures Procedure Name Priority Date/Time Associated Diagnosis Comments DERMATOPATHOLOGY Routine 02/01/2020 12:0 0 AM CDT documented in this encounter Results * DERMATOPATHOLOGY (02/01/2020 12:00 AM CDT) Case Report Dermatopathology Report Case: [id number] Authorizing Provider: Ed Kaplan MD Collected: 02/01/2020 12:00 AM Ordering Location: [facility] DermPath Lab Received: 02/04/2020 06:26 AM Pathologist: Buffy Jay MD Specimen: Skin, left pre earlobe 0 2:30 PM CDT DERMATOPATHOLOGY LABORATORY Final Diagnosis Specimen A. SKIN, left pre earlobe: GRANULOMATOUS DERMATITIS CONSISTENT WITH A RUPTURED CYST OR HAIR FOLLICLE (L72.0) (see microscopic description) 0 2:30 PM CDT DERMATOPATHOLOGY LABORATORY at 1430 CDT Clinical History BCC. 0 2:30 PM CDT DERMATOPATHOLOGY LABORATORY Gross Description Specimen A: Received is one formalin filled container labeled with the patient's name and designated left pre earlobe. The specimen consists of a shave biopsy measuring [id number]. Jar 0. 0 2:30 PM CDT DERMATOPATHOLOGY LABORATORY Microscopic Description Specimen A. SKIN, left pre earlobe: Neutrophils, histiocytes, and multinucleated giant cells are present within the dermis. Hemosiderophages are present. Additional deeper sections were obtained and reviewed. 0 2:30 PM CDT DERMATOPATHOLOGY LABORATORY Disclaimer An external and internal positive and negative controls are appropriate for the histochemical, immunohistochemical and immunofluorescence stain(s) in this case (if any), except where stated explicitly. The performance characteristics of the stain(s) cited in this report were developed and its performance characteristic determined by the Dermatopathology Laboratory at [facility], directed by Dr. Molly Jay. These tests need not be, and therefore are not, approved by the [place] Food and Drug Administration. The tests are used for clinical purposes. Billing Codes Specimen Charges Stain Charges 40208 1 0 2:30 PM CDT DERMATOPATHOLOGY LABORATORY Embedded Images 0 2:30 PM CDT DERMATOPATHOLOGY LABORATORY Pathology/Cytolog y TISSUE SPECIMEN FROM SKIN / Unknown 02/01/2020 02/04/2020 6:26 AM CDT us Ed Kaplan MD LAB - PATHOLOGY/CYTOLOGY ORDERAB LES Final Result DERMATOPATHOLOGY LABORATORY [facility] - Department of Dermatology [facility] [facility] [place] [address], [facility] [phone] documented in this encounter Visit Diagnoses Not on filedocumented in this encounter
--- OUTSIDE RECORDS SUMMARY | 2025-07-31 12:09 | XMS_ITS | Clinical Summary ---
Author Organization 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 Gender Identity Not on file Sexual Orientation Not on file Obstetrics History Last Filed Vital Signs Vital Sign Reading Time Taken Comments Blood Pressure 138/94 03/04/2025 6:42 PM CDT Pulse 83 03/04/2025 6:42 PM CDT Temperature 36.7 C (98.1 F) 03/04/2025 6:42 PM CDT Respiratory Rate 18 03/04/2025 6:42 PM CDT Oxygen Saturation 99% 03/04/2025 6:42 PM CDT Inhaled Oxygen Concentration - - Weight 97.5 kg (215 lb) 03/04/2025 6:42 PM CDT Height 182.9 cm (6') 03/04/2025 6:42 PM CDT Body Mass Index 29.16 03/04/2025 6:42 PM CDT Plan of Treatment Health Maintenance Due Date Last Done Comments Depression Screening 1990 Hepatitis C Screening 1990 Varicella Vaccines (1 of 2 - 13+ 2-dose series) 2003 DTaP/Tdap/Td Vaccine (1 - Tdap) 06/09/2004 06/08/2004 Hepatitis B Screening 2008 Regular Well Visit/Exam 18-64 2008 HPV Vaccines (1 - 3-dose SCD M series) 2017 Covid-19 Vaccine (3 - 2024-2 6 season) 2025 10/12/2021, 09/21/2021 Influenza Vaccine (#1) 2025 0, 09/04/2019 Pneumococcal vaccine <65 Aged Out No longer eligible based on patient's age to complete this topic Insurance [facility] ACCESS CHOICE Care Teams Meterman Relationship Specialty Start Date End Date Haritha Holman MD [address] [address] [place] [id number] PCP - General Family Medicine 10/27/23
--- OUTSIDE RECORDS SUMMARY | 2025-07-31 12:09 | XMS_ITS | Clinical Summary ---
Author Organization [facility] Address [address] [facility] [place] [address] Care Team Providers Care Division Order Technician Name Role Phone Unavailable Primary Care Provider Unavailabl e Source Comments [facility],non-owned Affiliates and Associated Physician Practices is amultiple site organization consisting of ambulatory clinics and hospital sitesin [place], [place], [place] and [place]. This disclosure is being madepursuant to the Care Everywhere program and may not contain all information available regarding this patient. Last updated 18.[employer] Payments Allergies No known active allergies Medications * Be aware that medications may not be up to date on this document. Alwaysverify current medications with the patient. No known medications Social History Tobacco Use Types Packs/Day Years Used Date Smoking Tobacco: Some Days Smokeless Tobacco: Never Sex and Gender Information Value Date Recorded Sex Assigned at Not on file Legal Sex Male 7:31 AM CDT Gender Identity Not on file Sexual Orientation Not on file Last Filed Vital Signs Vital Sign Reading Time Taken Comments Blood Pressure 134/90 08/11/2019 12:42 PM CDT Pulse 92 08/11/2019 12:42 PM CDT Temperature 36.7 C (98.1 F) 08/11/2019 12:42 PM CDT Respiratory Rate 17 08/11/2019 12:42 PM CDT Oxygen Saturation 98% 08/11/2019 12:42 PM CDT Inhaled Oxygen Concentration - - Weight 97.5 kg (215 lb) 08/11/2019 12:42 PM CDT Height 182.9 cm (6') 08/11/2019 12:42 PM CDT Body Mass Index 29.16 08/11/2019 12:42 PM CDT Plan of Treatment Health Maintenance Due Date Last Done Comments HIV SCREENING 2005 HEPATITIS C SCREENING 06/01/2008 DTAP/TDAP/TD VACCINES (1 - Tdap) 2009 HEPATITIS B VACCINE (1 of 3 - 19+ 3-dose series) 2009 PNEUMOCOCCAL VACCINE (1 of 2 - PCV) 2009 HPV VACCINE (1 - 3-dose SCDM series) 2017 COVID-19 VACCINE (1 - 2023-2 5 season) 2024 DEPRESSION SCREENING 11/21/2024 INFLUENZA VACCINE (#1) 2025 ZOSTER VACCINE (1 of 2) 2040 HIB VACCINE Aged Out No longer eligi ble based on patient's age to complete this topic MENINGOCOCCAL (Group B) VACC INE SHARED DECISION-MAKING Aged Out No longer eligibl e based on patient's age to complete this topic MENINGOCOCCAL GROUPS A/C/Y/W VACCINE Aged Out No longer eligible b ased on patient's age to complete this topic Insurance [employer] SELF PAY NO INSURANCE Member Subscriber Plan / Payer (Ef fective for All Dates) Name:Semaj Marquez Member ID:Not on file Relation to Subscriber:Not on file Name:SEMAJ MARQUEZ Subscriber ID:Not on file (Home) Address: [address] [place] [address] Payer ID:Not on file Group ID:Not on file Type:Self Pay Address: [place], [place] AN[place]
--- OUTSIDE RECORDS SUMMARY | 2025-07-31 12:09 | XMS_ITS | Clinical Summary ---
Author Organization [facility] Address [address] [place] [id number] Care Team Providers Care Assistant Director Of Public Works Name Role Phone Haritha Holman MD Primary Care Provider [phone] Social History Tobacco Use Types Packs/Day Years Used Date Smoking Tobacco: Never Assessed Sex and Gender Information Value Date Recorded Sex Assigned at Not on file Legal Sex Male 4:03 PM CDT Gender Identity Not on file Sexual Orientation Not on file Plan of Treatment Health Maintenance Due Date Last Done Comments Annual Physical 1993 Hepatitis C 2008 DTaP, Tdap and Td Vaccines ( 1 - Tdap) 2009 Hepatitis B Vaccines (1 of 3 - 19+ 3-dose series) 2009 HPV Vaccines (1 - 3-dose SCD M series) 2017 COVID-19 Vaccine (1 - 2023-2 5 season) 2025 Meningococcal B Vaccine Aged Out No l onger eligible based on patient's age to complete this topic Meningococcal Vaccine Aged Out No gavin adams eligible based on patient's age to complete this topic Pneumococcal Vaccine: Pediat rics (0 to 5 Years) and At-Risk Patients (6 to 49 Years) Aged Out No longer eligible b ased on patient's age to complete this topic RSV Immunizations Under 20 Months Aged Out No longer eligible based on patient's age to complete this topic Insurance [id number] Care Teams Assistant Director Of Public Works Relationship Specialty Start Date End Date Haritha Holman MD [address] [place] [address] [place] [address] PCP - General FAMILY PRACTICE 09/19/19
[2025-07-31 19:13] LABS: Alanine Aminotransferase 40 U/L (6-50); Albumin Level 4.8 g/dL (3.5-5.1); Alkaline Phosphatase 59 U/L (38-126); Anion Gap 7 mmol/L (4-12); Aspartate Amino Transferase 68 U/L (17-59); Bilirubin,Total 0.4 mg/dL (0.2-1.3); Blood Urea Nitrogen 18 mg/dL (9-20); Calcium 9.2 mg/dL (8.4-10.2); Carbon Dioxide 28 mmol/L (22-30); Chloride 101 mmol/L (98-107); Cholesterol 192 mg/dL (0-200); Estimated Glomerular Filt Rate > 60; Glucose 85 mg/dL (65-110); HDL Direct 37 mg/dL; Potassium 4.5 mmol/L (3.4-5.0); Sodium 136 mmol/L (137-145); Total Protein 7.7 g/dL (6.3-8.2); Triglycerides 133 mg/dL (<150)
[2025-07-31 19:16] LABS: Hematocrit 45.5 % (42.0-52.0); Hemoglobin 15.1 g/dL (14.0-18.0); Mean Corpuscular HGB Conc 33.2 g/dl (32-36); Mean Corpuscular Hemoglobin 28.8 pg (26-34); Mean Corpuscular Volume 86.8 fl (80-100); Platelet Count Result 304 k/mm3 (150-375); Red Blood Count 5.24 M/mm3 (4.6-6.20); White Blood Count 8.6 K/mm3 (4.5-10.0)
[2025-07-31 19:49] LABS: Thyroid Stimulating Hormone 1.490 uIU/mL (0.465-4.680)
[2025-07-31 20:07] LABS: Vitamin B12 341.0 pg/mL (239-931)
[2025-08-05 12:08] LABS: ANA by IFA Rfx Titer/Pattern Negative (.)
== END 2025-07-31 11:13 | disposition home or self-care (01) ==
LOC: ANHBWCLAB 11:13
PROVIDERS: PCP Nurse Practitioner Adult Health; Visit Provider Nurse Practitioner Adult Health
DX: Z00.00 Encounter for general adult medical examination without abnormal findings (principal)
CPT/HCPCS: 36415; 80053; 80061; 82607; 84443; 85027; 86038